=== PATIENT | female | born 1960 | race Native Hawaiian/Other Pacific Islander ===

== ENCOUNTER 2017-07-21 09:11 | Outpatient (CLI) | payer BC ==
[~2017-07-21 09:11] MED LIST: ALBUTEROL0.083 % IN; CHLOSUS43 PO; FLUO20CA6 PO; LEVO0.1T6 PO; LEVO500T PO; MEDROL DOSEPAK4 MG OR
== END 2017-07-21 19:02 | disposition home or self-care (01) ==
LOC: MAMMO 09:11
DX: Z12.31 Encounter for screening mammogram for malignant neoplasm of breast (principal)

== ENCOUNTER 2019-03-09 08:41 | Outpatient (CLI) | payer BC | END 2019-03-09 22:32 | disposition home or self-care (01) | LOC: MAMMO 08:41 | DX: Z12.31 Encounter for screening mammogram for malignant neoplasm of breast (principal) ==

== ENCOUNTER 2019-04-27 08:48 | Outpatient (CLI) | payer BC | END 2019-04-27 19:55 | disposition home or self-care (01) | LOC: LABW 08:48 | DX: R19.5 Other fecal abnormalities (principal) | CPT/HCPCS: 83630; 87015; 87045; 87324; 87328; 87329; 87449; 87507; 87899 ==

== ENCOUNTER 2019-05-05 13:51 | Outpatient (CLI) | payer BC | END 2019-05-05 23:25 | disposition home or self-care (01) | LOC: NM 13:51 | DX: K82.0 Obstruction of gallbladder (principal) | CPT/HCPCS: A9537 ==

== ENCOUNTER 2020-04-12 13:20 | Outpatient (CLI) | payer BC | END 2020-04-12 21:55 | disposition home or self-care (01) | LOC: RAD 13:20 | DX: M25.512 Pain in left shoulder (principal); Z12.31 Encounter for screening mammogram for malignant neoplasm of breast ==

== ENCOUNTER 2020-04-23 09:53 | Outpatient (CLI) | payer BC | END 2020-04-23 19:14 | disposition home or self-care (01) | LOC: MAMMO 09:53 | DX: Z12.31 Encounter for screening mammogram for malignant neoplasm of breast (principal); M25.512 Pain in left shoulder ==

== ENCOUNTER 2020-10-08 08:36 | Outpatient (CLI) | payer BC | END 2020-10-08 19:15 | disposition home or self-care (01) | LOC: US 08:36 | PROVIDERS: ATTEND Internal Medicine | DX: R82.81 Pyuria (principal) ==

== ENCOUNTER 2020-10-30 16:02 | Outpatient (CLI) | payer BC, OTHER | END 2020-10-30 20:18 | disposition home or self-care (01) | LOC: INF 16:02 | PROVIDERS: ATTEND Internal Medicine | DX: Z23 Encounter for immunization (principal) | CPT/HCPCS: 96372 ==

== ENCOUNTER 2020-11-27 08:28 | Outpatient (CLI) | payer BC, OTHER | END 2020-11-27 19:53 | disposition home or self-care (01) | LOC: INF 08:28 | PROVIDERS: ATTEND Internal Medicine | DX: Z23 Encounter for immunization (principal) | CPT/HCPCS: 96372 ==

== ENCOUNTER 2022-03-05 14:25 | Outpatient (CLI) | payer BC | END 2022-03-05 19:04 | disposition home or self-care (01) | LOC: RAD 14:25 | PROVIDERS: ATTEND Internal Medicine | DX: J40 Bronchitis, not specified as acute or chronic (principal) ==

== ENCOUNTER 2022-05-12 10:32 | Outpatient (CLI) | payer BC | END 2022-05-12 19:22 | disposition home or self-care (01) | LOC: MAMMO 10:32 | PROVIDERS: ATTEND Internal Medicine | DX: Z12.31 Encounter for screening mammogram for malignant neoplasm of breast (principal); Z13.820 Encounter for screening for osteoporosis ==

== ENCOUNTER 2022-12-03 09:18 | Outpatient (CLI) | payer BC | END 2022-12-03 17:00 | disposition home or self-care (01) | LOC: US 09:18 | PROVIDERS: ATTEND Internal Medicine | DX: R79.89 Other specified abnormal findings of blood chemistry (principal) ==